=== PATIENT | male | born 1975 | race Caucasian/White ===

== ENCOUNTER 2020-02-07 10:57 | Day surgery (SDC) | payer BC, OTHER ==
[~2020-02-07] VITALS: Ht 193 cm; Wt 101.2 kg
--- NOTE | ~2020-02-07 | O ---
[facility] [place] [address] OPERATIVE REPORT Name: LISETH SUE Room #: 150-4 [facility]#: [id number] Admission: 02/07/20 Attend Phys: Roby Garza MD Discharge: Date of : 75 Report #: [id number] THIS REPORT FOR: cc: SHANE - Anay family physician/PCP SHANE - Anay family physician/PCP Roby Garza MD ~ CC: [facility] physician/PCP Roby Garza DATE OF SERVICE: 02/07/2020 PREOPERATIVE DIAGNOSIS: Left Achilles tendon tear. POSTOPERATIVE DIAGNOSIS: Left Achilles tendon tear. PROCEDURE: Left Achilles tendon repair. SURGEON: Roby Garza MD. CYBER SYSTEMS OPERATIONS SPECIALIST: Frances Juan. ANESTHESIA: General. ESTIMATED BLOOD LOSS: Minimal. DRAINS: No drains. TOURNIQUET TIME: 45 minutes. COMPLICATIONS: There were no complications. DESCRIPTION OF PROCEDURE: The patient brought to the operating room where he was placed under general anesthesia. Once under adequate general anesthesia, he was placed into a prone position on the operative table. The patient's left lower extremity was then prepped and draped in sterile manner. The extremity was elevated, exsanguinated, tourniquet placed 300 mmHg. A posterior incision approximately 2 cm in length was made overlying the tendon tear and hematoma was evacuated from the tear region and the pars jig was then placed. After the sutures were passed, the suture did pull through the tendon, this happened again. Therefore, the wound was extended. The incision was extended, 2 cm on either side and the tendon ends were then identified and debrided with tenotomy scissors to good stable tendon tissue. A repair was then achieved utilizing a 4 strand [place] type technique with #5 FiberWire suture. This was oversewn with 0 Vicryl suture. Excellent repair was achieved in this manner. The wound was irrigated copiously and the retinacular tissue was repaired with 0 Vicryl as well. 2-0 Vicryl was used in subcutaneous tissues and hannah were used for the [address] [address] OPERATIVE REPORT Name: LISETH SUE Room #: 150-4 [facility]..#: [id number] Admission: 02/07/20 Attend Phys: Roby Garza MD Discharge: Date of : 75 Report #: [id number] skin. The wounds were dressed with Xeroform, 4 x 4s, and sterile soft compressive dressing with a short leg cast with the foot in plantar flexion was made. Tourniquet was let down at 45 minutes. Toes were pink and warm with good capillary refill. There were no complications from the procedure. The patient tolerated the procedure well and was taken to recovery room without incident. By: [id number] Roby Garza MD /nt
[~2020-02-07 10:57] MED LIST: ADVIL200 M1 PO; HYDROCODON-ACE1 EAC5 PO
[2020-02-07 11:42] VITALS: BP 148/91
[2020-02-07] MEDS ORDERED: PERCOCET 7.5-31 EAC1 PO (13:32)
[2020-02-07 14:03] VITALS: BP 148/91
== END 2020-02-07 14:03 | disposition home or self-care (01) ==
LOC: TBA 10:57 → OR 10:57 → TBA 11:03 → OR 11:28
PROVIDERS: ATTEND Orthopaedic Surgery Foot and Ankle Surgery
DX: S86.012A Strain of left Achilles tendon, initial encounter (principal); M79.605 Pain in left leg; F17.210 Nicotine dependence, cigarettes, uncomplicated; Z98.890 Other specified postprocedural states; Z11.59 Encounter for screening for other viral diseases; X58.XXXA Exposure to other specified factors, initial encounter; Y93.89 Activity, other specified; Y92.89 Other specified places as the place of occurrence of the external cause; Y99.8 Other external cause status
CPT/HCPCS: 50101; 50386; 51412; 52120; 56524; 56531; 57091; 57180; 58187; 62110; 62900; 70005